=== PATIENT | male | born 1985 | race Caucasian/White ===

== ENCOUNTER 2017-03-05 01:39 | Emergency (ER) | payer SELFPAY ==
[2017-03-05 01:40] VITALS: BMI 23.1
[2017-03-05 02:02] VITALS: BP 113/77; PULSE 74; TEMP 98.9; O2SAT 97
--- NOTE | 2017-03-05 02:19 | C.PDOC ---
History Of Present Illness 31 year old patient, with a past medical history of anxiety, presents to the ED complaining of being anxious. Patient states he ran out of his Zoloft and he can 't refill his prescription because his PMD is on vacation. Patient denies depression, suicidal or homicidal ideation. Patient also complains of feeling shaky, but states he is okay. He will be seeing his psychiatrist later this week. Time Seen by Provider: 03/05/17 02:04 Chief Complaint (Nursing): Anxiety History Per: Patient History/Exam Limitations: no limitations Onset/Duration Of Symptoms: Other Current Symptoms Are (Timing): Still Present Suicide/Self Injury Attempted (Context): None Severity: None Pain Scale Rating Of: 0 Associated Symptoms: Anxiety Recent travel outside of the [place]: No Past Medical History Reviewed: Historical Data, Nursing Documentation, Vital Signs Vital Signs: Last Vital Signs Temp 98.9 F 03/05/17 01:54 Pulse 74 03/05/17 01:54 Resp 20 03/05/17 03:09 BP 113/77 03/05/17 01:54 Pulse Ox 97 03/05/17 05:11 - Medical History PMH: Anxiety, Depression - [facility] Procedures C.A.T. SCAN OF ABDOMEN (01/20/15) PERCUTAN NEEDLE BX OF LIVER (01/20/15) Family History: States: Unknown Family Hx - Social History Hx Tobacco Use: No Hx Alcohol Use: No Hx Substance Use: No - Immunization History Hx Tetanus Toxoid Vaccination: No Hx Influenza Vaccination: No Hx Pneumococcal Vaccination: No Review Of Systems Except As Marked, All Systems Reviewed And Found Negative. Psych: Positive for: Anxiety. Negative for: Depression, Suicidal ideation Physical Exam - Physical Exam Appears: Non-toxic, No Acute Distress Skin: Warm, Dry Eye(s): bilateral: Normal Inspection, PERRL, EOMI Cardiovascular: Rhythm Regular Respiratory: Normal Breath Sounds, No Rales, No Rhonchi, No Wheezing Extremity: Normal ROM, No Pedal Edema, No Calf Tenderness, Capillary Refill (<2 seconds), No Deformity, No Swelling, Other (hands mildly shaking) ED Course And Treatment O2 Sat by Pulse Oximetry: 97 (RA) Pulse Ox Interpretation: Normal Disposition Counseled Patient/Family Regarding: Diagnosis, Need For Followup, Rx Given - Disposition Referrals: Shaik Cramer MD [Staff Provider] - Disposition: HOME/ ROUTINE Disposition Time: 02:16 Condition: STABLE Additional Instructions: Please follow up with your psychiatrist this week Take meds as directed Return to ER if worse Prescriptions: Sertraline [Zoloft] 50 mg PO DAILY #7 tab Instructions: Anxiety (ED) Print Language: CYPRIOT - Clinical Impression Clinical Impression: Anxiety, Medication refill - 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 - Scribe Statement The provider has reviewed the documentation as recorded by the Scribe Janette Steen All medical record entries made by the Scribe were at my direction and personally dictated by me. I have reviewed the chart and agree that the record accurately reflects my personal performance of the history, physical exam, medical decision making, and the department course for this patient. I have also personally directed, reviewed, and agree with the discharge instructions and disposition.
[2017-03-05 03:16] VITALS: RESP 20
== END 2017-03-05 03:09 | disposition home or self-care (01) ==
LOC: C.ER 01:39
DX: F41.9 Anxiety disorder, unspecified (principal); Z76.0 Encounter for issue of repeat prescription